=== PATIENT | female | born 1955 | race Caucasian/White ===

== ENCOUNTER 2021-07-29 07:37 | Outpatient (CLI) | payer MEDICARE, BC | END 2021-07-29 07:38 | disposition home or self-care (01) | LOC: BICMRI 07:37 | PROVIDERS: ATTEND Orthopaedic Surgery | DX: M25.562 Pain in left knee (principal); G89.29 Other chronic pain; S83.282A Other tear of lateral meniscus, current injury, left knee, initial encounter; S83.242A Other tear of medial meniscus, current injury, left knee, initial encounter; M17.12 Unilateral primary osteoarthritis, left knee ==